=== PATIENT | male | born 1945 | race Caucasian/White ===

== ENCOUNTER 2018-09-28 00:27 | Emergency (ER) | payer MEDICARE, BC ==
[~2018-09-28] VITALS: Ht 175.3 cm; Wt 108.2 kg
[~2018-09-28 00:27] MED LIST: ATORVASTATIN; AVADART; HCTZ; MICARDIS 40MG40 MG PO
[2018-09-28 00:32] VITALS: PULSE 73; TEMP 97.6
[2018-09-28] MEDS ORDERED: AMOXICILLIN 8751 TAB PO (02:52)
[2018-09-28 03:03] VITALS: BP 138/88
== END 2018-09-28 03:03 | disposition home or self-care (01) ==
LOC: COL.ER 00:27
DX: M79.89 Other specified soft tissue disorders (principal); I10 Essential (primary) hypertension; E78.5 Hyperlipidemia, unspecified; F17.210 Nicotine dependence, cigarettes, uncomplicated

== ENCOUNTER 2018-12-19 09:02 | Emergency (ER) | payer MEDICARE, BC ==
[~2018-12-19] VITALS: Ht 175.3 cm; Wt 104.5 kg
[~2018-12-19 09:02] MED LIST changes: +AMOXICILLIN 8751 TAB PO
[2018-12-19 09:14] VITALS: TEMP 98.4
[2018-12-19 11:03] LABS: BASO # 0.1 (0.0-0.2); BASO % 0.6 % (0.0-2.0); EOS # 0.1 (0.0-0.7); EOS % 1.3 % (0-4.0); GRAN # 5.6 (1.4-6.5); GRAN % 63.6 % (42.2-75.2); HEMATOCRIT 46.9 % (42.0-52.0); HEMOGLOBIN 15.3 g/dl (13.5-18.0); LYMPH # 2.1 (1.2-3.4); LYMPH % 24.5 % (20.0-51.0); MEAN CELL VOLUME 94 fl (80.0-100.0); MEAN CORPUSCULAR HEMOGLOBIN 31 pg (27.0-31.0); MEAN CORPUSCULAR HGB CONC 33 g/dl (33.0-37.0); MONO # 0.8 (0.1-0.6); MONO % 9.4 % (1.7-9.3); PLATELET COUNT 203 K/mm3 (130-400); RED BLOOD COUNT 4.99 M/mm3 (4.20-5.60); REDCELL DISTRIBUTION WIDTH-CV 14.3 % (11.5-14.5)
[2018-12-19 11:15] LABS: COLLECTION METHOD CLEAN CATCH
[2018-12-19 11:21] LABS: PH 6 (5-8); SQUAMOUS EPITHELIAL 0-2 /hpf; URINE APPEARANCE Clear; URINE BACTERIA None Seen /hpf; URINE BILIRUBIN Negative (NEGATIVE); URINE BLOOD 1+ (NEGATIVE); URINE COLOR Straw; URINE GLUCOSE Negative (NEGATIVE); URINE KETONE Negative (NEGATIVE); URINE LEUKOCYTE ESTERASE Negative (NEGATIVE); URINE NITRATE Negative (NEGATIVE); URINE PROTEIN(semi-quant) Negative (NEGATIVE); URINE RBC 0-2 /hpf; URINE UROBILINOGEN Negative (NEGATIVE)
[2018-12-19 11:30] LABS: ALANINE AMINOTRANSFERASE 31 U/L (21-72); ALBUMIN 3.7 gm/dL (3.5-5.0); ALKALINE PHOSPHATASE 43 U/L (50-136); ANION GAP 6 mmol/L (7-16); AST,SGOT 25 U/L (15-37); BILIRUBIN,TOTAL 0.7 mg/dL (0.0-1.0); BLOOD UREA NITROGEN 16 mg/dL (9-20); C-REACTIVE PROTEIN < 0.5 mg/dL (0.0-0.9); CALCIUM 8.9 mg/dL (8.4-10.2); CARBON DIOXIDE 26 mmol/L (22-30); CHLORIDE 106 mmol/L (98-107); CREATININE, serum 0.84 (0.66-1.25); GLUCOSE 117 mg/dL (74-106); LIPASE 279 U/L (23-300); POTASSIUM 4.1 mmol/L (3.4-5.0); SODIUM 138 mmol/L (137-145); TOTAL PROTEIN 6.6 gm/dL (6.4-8.2)
[2018-12-19] MEDS ORDERED: FLEXERIL 1010 MG/TAB PO (11:48)
[2018-12-19] MEDS ORDERED: LIDODERM 5% PATC1 EA TP (11:49)
[2018-12-19 12:28] VITALS: BP 144/91; PULSE 75
== END 2018-12-19 12:29 | disposition home or self-care (01) ==
LOC: COL.ER 09:02
PROVIDERS: Emergency Medicine
DX: R10.9 Unspecified abdominal pain (principal); I10 Essential (primary) hypertension; E78.5 Hyperlipidemia, unspecified; F17.210 Nicotine dependence, cigarettes, uncomplicated; Z98.890 Other specified postprocedural states
CPT/HCPCS: J1885; J2405; J7030; Q9967